=== PATIENT | female | born 1990 | race Caucasian/White ===

== ENCOUNTER 2018-07-21 03:41 | Emergency (ER) | payer MEDICAID ==
[~2018-07-21] VITALS: Ht 157.5 cm; Wt 83.7 kg
[2018-07-21 03:46] VITALS: BP 136/96
--- NOTE | 2018-07-21 04:00 | NUR ---
28 y/o F presented to Ed with c/o lower back pain and lower abdominal pain x1 day. AAOx4. 10 pain that is sharp, constant, and aching in nature. abdomen tender to touch. nausea present. had diarrhea x4 times. yesterday. denies blood in urine and stool. bedrail x2 up. ERMD notified. Will continue to monitor.
[2018-07-21] MEDS ORDERED: ONDANSETRON 4 MG/2 ML VIAL IVP ONE (04:10)
[2018-07-21] MEDS ORDERED: NACL 0.9% 500 ML IV ONE (04:10)
--- NOTE | 2018-07-21 04:15 | NUR ---
DR. NUÑEZ BEDSIDE EVALUATING PT
[2018-07-21] MEDS ORDERED: MORPHINE SULFATE 2 MG/ML SYR IVP ONE (04:20)
--- NOTE | 2018-07-21 04:46 | NUR ---
RAD AT BEDSIDE
[2018-07-21 04:54] LABS: BASOPHILS % (AUTO) 0.5 % (0.0-2.0); EOSINOPHILS # (AUTO) 0.1 K/uL (0-0.4); EOSINOPHILS % (AUTO) 0.8 % (0.0-4.0); HEMATOCRIT 38.8 % (36-48); HEMOGLOBIN 13.2 g/dL (12.0-16.0); LYMPHOCYTES # (AUTO) 1.4 K/uL (2.5-16.5); LYMPHOCYTES % (AUTO) 15.1 % (20.5-51.1); MEAN CORPUSCULAR HEMOGLOBIN 30 pg (27-31); MEAN CORPUSCULAR HGB CONC 34 g/dL (33-37); MEAN CORPUSCULAR VOLUME 87.2 fL (80-94); MONOCYTES # (AUTO) 0.4 K/uL (0.8-1.0); MONOCYTES % (AUTO) 4.8 % (1.7-9.3); NEUTROPHILS # (AUTO) 7.4 K/uL (1.8-7.7); NEUTROPHILS % (AUTO) 78.8 % (42.2-75.2); PLATELET COUNT (AUTO) 380 K/uL (140-450); RED BLOOD CELL COUNT(AUTO) 4.45 MIL/uL (4.20-5.40); RED CELL DISTRIBUTION WIDTH 13.4 % (11.6-13.7); WHITE BLOOD COUNT (AUTO) 9.3 K/uL (4.8-10.8)
[2018-07-21 05:18] LABS: CARBON DIOXIDE 27.9 mmol/L (21-32); CREATININE 0.8 mg/dL (0.6-1.3); POTASSIUM 3.9 mmol/L (3.5-5.1)
[2018-07-21 05:22] LABS: ALBUMIN 3.6 g/dL (3.4-5.0); TOTAL BILIRUBIN 0.4 mg/dL (0.0-1.0)
--- NOTE | 2018-07-21 06:00 | NUR ---
Per pt, "my stomach pain is gone, but my back still hurts". 11/03 back pain. ERMD notified. No new orders at this time.
[2018-07-21] MEDS ORDERED: PANTOPRAZOLE 40 MG INJ VIAL IVP ONE (06:05)
[2018-07-21 06:30] VITALS: BP 130/66
--- NOTE | 2018-07-21 06:30 | NUR ---
Patient discharged with v/s stable. Written and verbal after care instructions given and explained. Patient alert, oriented and verbalized understanding of instructions. Ambulatory with steady gait. All questions addressed prior to discharge. ID band removed. Patient advised to follow up with PMD. Rx of Zofran, Tramadol, Prilosec given. Patient educated on indication of medication including possible reaction and side effects. Opportunity to ask questions provided and answered.
== END 2018-07-21 06:30 | disposition home or self-care (01) ==
LOC: MED 03:41
DX: K29.00 Acute gastritis without bleeding (principal); Z88.8 Allergy status to other drugs, medicaments and biological substances
CPT/HCPCS: 36415; 71045; 76705; 80053; 81025; 83690; 85025; 96374; 96375; 99284; C9113; J2270; J2405; J7030; Q0092

== ENCOUNTER 2019-12-18 21:43 | Emergency (ER) | payer MEDICAID, OTHER ==
[~2019-12-18] VITALS: Ht 154.9 cm; Wt 77.1 kg
[2019-12-18 21:48] VITALS: BP 137/96
[2019-12-18] MEDS ORDERED: ACETAMINOPHEN EXTRA STRENGTH 500 MG TAB PO ONE (22:15)
[2019-12-18 22:58] VITALS: BP 137/96
== END 2019-12-18 22:58 | disposition home or self-care (01) ==
LOC: MED 21:43
DX: S93.504A Unspecified sprain of right lesser toe(s), initial encounter (principal); W22.8XXA Striking against or struck by other objects, initial encounter; Y93.89 Activity, other specified; Y92.89 Other specified places as the place of occurrence of the external cause; Y99.8 Other external cause status
CPT/HCPCS: 73660; 99283; Q0092

== ENCOUNTER 2020-01-12 19:03 | Emergency (ER) | payer OTHER ==
[~2020-01-12] VITALS: Ht 154.9 cm; Wt 72.6 kg
[2020-01-12 19:07] VITALS: BP 132/92
--- NOTE | 2020-01-12 19:15 | NUR ---
29 y/o female presented to ED c/o pain 10/10 in the left ring finger, pt stated that she was looking through a friend's backpack and was punctured by a needle. CMS intact. No bleeding or swelling noted at this time. Pt is in no acute distress at this time. Pt sitting upright at bedside. Bed is locked and in lowest position. PMH: asthma allergies: ibuprofen
--- NOTE | 2020-01-12 19:16 | NUR ---
SHIVA Sagastume at bedside for medical evaluation.
--- NOTE | 2020-01-12 19:23 | NUR ---
APPLIED BACITRACIN AND DRESSING TO RIGHT 4TH DIGIT
--- NOTE | 2020-01-12 19:25 | NUR ---
Xray at bedside
[2020-01-12] MEDS ORDERED: ACETAMINOPHEN 325 MG TAB PO ONE (19:30)
--- NOTE | 2020-01-12 19:42 | NUR ---
SHIVA Sagastume at bedside for re evaluation.
[2020-01-12 19:58] VITALS: BP 132/92
--- NOTE | 2020-01-12 19:58 | NUR ---
Patient discharged with v/s stable. Written and verbal after care instructions given and explained. Patient alert, oriented and verbalized understanding of instructions. Ambulatory with steady gait. All questions addressed prior to discharge. ID band removed. Patient advised to follow up with PMD. Rx of KEFLEX, ACETAMINOPHEN, & BACITRACIN given. Patient educated on indication of medication including possible reaction and side effects. Opportunity to ask questions provided and answered.
== END 2020-01-12 19:58 | disposition home or self-care (01) ==
LOC: MED 19:03
DX: S61.245A Puncture wound with foreign body of left ring finger without damage to nail, initial encounter (principal); J45.909 Unspecified asthma, uncomplicated; Z88.8 Allergy status to other drugs, medicaments and biological substances; W45.8XXA Other foreign body or object entering through skin, initial encounter; Y93.89 Activity, other specified; Y92.89 Other specified places as the place of occurrence of the external cause; Y99.8 Other external cause status
CPT/HCPCS: 73130; 99284; Q0092

== ENCOUNTER 2020-12-23 12:04 | Emergency (ER) | payer OTHER ==
[~2020-12-23] VITALS: Ht 157.5 cm; Wt 73.5 kg
[2020-12-23 12:09] VITALS: BP 123/83
--- NOTE | 2020-12-23 12:30 | NUR ---
DR WIN EXAMINING PT
--- NOTE | 2020-12-23 12:30 | NUR ---
30 y/o F BIB family c/o rash, swollen throat, headache s/p 1st dose COVID vaccine shot on Monday. Patient reports rash that began to bilateral hands 4 hours after vaccination, and states symptoms + throat swelling, +body aches that worsen yesterday. Patient denies abdominal pain, itchiness, SOB, N/V/D, dizziness, chills. small rashes noted to bilat hands and bilat upper arms. RX:Tylenol with no relief PMH: Asthma, Albuterol, appendectomy Allergies: Ibuprofen
[2020-12-23] MEDS ORDERED: FAMOTIDINE 20 MG TAB PO ONE (12:35)
[2020-12-23] MEDS ORDERED: diphenhydrAMINE 50 MG/ML VIAL IM ONE (12:35)
[2020-12-23] MEDS ORDERED: FAMO-90 PO (12:36)
[2020-12-23] MEDS ORDERED: DIPH25TA53 PO (12:36)
[2020-12-23] MEDS ORDERED: BENC TP (12:36)
--- NOTE | 2020-12-23 12:58 | NUR ---
Patient discharged with v/s stable. Written and verbal after care instructions given and explained. Patient alert, oriented and verbalized understanding of instructions. Ambulatory with steady gait. All questions addressed prior to discharge. ID band removed. Patient advised to follow up with PMD. Rx of Benadryl Itch Cream, Benadryl, Pepcid given. Patient educated on indication of medication including possible reaction and side effects. Opportunity to ask questions provided and answered.
== END 2020-12-23 12:58 | disposition home or self-care (01) ==
LOC: MED 12:04
DX: R21 Rash and other nonspecific skin eruption (principal); J45.909 Unspecified asthma, uncomplicated; Z79.899 Other long term (current) drug therapy; Z79.1 Long term (current) use of non-steroidal anti-inflammatories (NSAID)
CPT/HCPCS: 96372; 99283; J1200